=== PATIENT | female | born 1970 | race Hispanic/Latino ===

== ENCOUNTER 2019-10-13 08:58 | Day surgery (SDC) | payer OTHER ==
--- NOTE | 2019-10-13 09:38 | Anesthesia Day of Surgery ---
Anesthesia Day of Surgery - Day of Surgery Patient Examined: Yes Patient H&P Reviewed: Yes Patient is NPO: Yes (11am on 10/13/2019) Beta Blockers: No Cardiac Clearance: No Pulmonary Clearance: No Rasta's Test: N/A
--- NOTE | 2019-10-13 09:40 | Anesthesia Consultation ---
Anesthesia Consult and Med Hx Date of service: 10/13/19 - Airway Anesthetic Teeth Evaluation: Good Mental/Hyoid Distance: Adequate Mallampati Class: Class II Intubation Access Assessment: Probably Good - Pulmonary Exam CTA: Yes - Cardiac Exam Cardiac Exam: RRR - Pre-Operative Health Status ASA Pre-Surgery Classification: ASA2 Proposed Anesthetic Plan: MAC, TIVA - Pre-Anesthesia Comment Pre-Anesthesia Comments: otherwise healthy - anxiety, hypothyroidism, hyperlipidemia - Pulmonary Hx Smoking: No Hx Sleep Apnea: No - Cardiovascular System Hx Hypertension: No (HLD) - Endocrine Hx Insulin Dependent Diabetes: No Hx Thyroid Disease: Yes - Other Systems Hx Substance Use: No Hx Cancer: No Hx Obesity: No - Additional Comments Anesthesia Medical History Comments: tubal ligation - no problems with GA
[2019-10-13] MEDS ORDERED: SODIUM CHLORIDE 0.9% 1000 ML 1,000 ML IV SCH (09:45)
[2019-10-13] MEDS ORDERED: WATER FOR IRRIG STERILE 250 ML BOTTLE IR ONE (09:56)
[2019-10-13] MEDS ORDERED: LIDOCAINE MPF (2%) 20 MG/1 ML VIAL 5 ML ONE (10:00)
[2019-10-13] MEDS ORDERED: PROPOFOL 200 MG/20 ML VIAL IV ONE ×2 (10:03)
--- NOTE | 2019-10-13 10:23 | History and Physical Report ---
HISTORY OF PRESENT ILLNESS: A 49-year-old white female with an underlying history of hyperlipidemia and hypothyroidism, who does not give any family history of cancer, but lately has been noticing some lower GI bleeding for which she has been sent for further evaluation and treatment. She does not give any history of weight loss, has no prior history of having had a colonoscopy or an EGD done. SOCIAL HISTORY: Denies history of smoking or alcohol use. No cardiac issues. No flu shots. MEDICATIONS: Levothyroxine, paroxetine, and atorvastatin. ALLERGIES: She has no known allergies. PHYSICAL EXAMINATION: VITAL SIGNS: She is afebrile, blood pressure 124/79, pulse is 70, height is 5 feet 7 inches, and weight is 244 pounds. HEENT: Shows no JVD. LUNGS: Clear to auscultation. CARDIOVASCULAR: Normal. ABDOMEN: Soft. Bowel sounds present. NEUROLOGIC: The patient is otherwise alert and oriented. ASSESSMENT: Hematochezia, possible colitis, hyperlipidemia, and hypothyroidism. PLAN: Plan is to do a colonoscopy and possible flex sig with banding to be done at [facility] on 10/13/2019. The patient has been given Suprep as a prep. The patient had been seen in the office in the presence of Ann Marie Stanley. JOB# [id number] ABHILASH/CLIFTON
--- NOTE | 2019-10-13 10:37 | Procedure Note ---
Date of procedure: 10/13/19 Pre-op diagnosis: Hematochezia Post-op diagnosis: other (Hematochezia secondary to minor Internal Hemorrhoid (not significant enough for banding)/ Non-specific Colitis (Recto-Sigmoid)/R/O Ileitis) Procedure: Colonoscopy with Biopsy Anesthesia: [facility] [place] Surgeon: LILIBETH MCCALL Estimated blood loss: minimal Pathology: list Specimen disposition: to lab Condition: stable Disposition: same day (Use OTC Hemorrhoidal medication. Avoid aspirin and NSAID for 4 days; otherwise resume home medication. follow up in 1 to 2 weeks ([phone]).)
--- NOTE | 2019-10-13 10:54 | Operative Report ---
PROCEDURE: Colonoscopy. INDICATIONS: A 49-year-old white female who has been having some hematochezia. Colonoscopy was done to assess for the problem. DESCRIPTION OF PROCEDURE: Procedure was done after getting informed consent with MAC anesthesia. Initial rectal exam was unremarkable. Instrument was passed through the rectum onto the cecum, which was identified by the ileocecal valve and the appendiceal orifice. The terminal ileum was intubated, which showed normal mucosa. Biopsy was done to rule out for possible ileitis. Cecum, ascending colon, transverse colon, descending colon, and sigmoid showed normal mucosa. There was some mild possibly nonspecific inflammation involving the rectosigmoid area, may be secondary to the patient's prep. Biopsy was done to assess for any severity of any nonspecific colitis in the area of the rectum, showed minor internal hemorrhoid, which may have been the cause of the patient's hematochezia, but not significant enough for banding, so no banding was performed. There was minimal bleeding associated with the biopsies with no complications associated with the procedure. Procedure was done in the GI lab with assistance of the GI lab team, which included RNBrie with Kaylie celeste and with assistance of anesthesia. ASSESSMENT: Hematochezia secondary to minor internal hemorrhoids not significant enough for banding nonspecific colitis involving the rectosigmoid, rule out ileitis. No diverticular disease of colon polyps noted. PLAN: To encourage the patient to avoid aspirin and aspirin-related products for the next 4 days and to take [id number] hemorrhoidal medication and to follow up in the office in 1-2 weeks' time. Resume home medication except for aspirin and aspirin-related products, which are to be avoided for the next 4 days. [facility]# [id number] ABHILASH/CLIFTON
[2019-10-13 11:13] VITALS: BP 121/71
== END 2019-10-13 08:59 | disposition home or self-care (01) ==
LOC: GIO 08:58
DX: K92.1 Melena (principal); K64.8 Other hemorrhoids; K63.89 Other specified diseases of intestine; E78.5 Hyperlipidemia, unspecified; E03.9 Hypothyroidism, unspecified; Z79.899 Other long term (current) drug therapy; Z98.51 Tubal ligation status; Z98.890 Other specified postprocedural states
CPT/HCPCS: 45380; 88305; J2704; J7030